=== PATIENT | male | born 1985 | race African-American/Black ===

== ENCOUNTER 2017-06-28 19:00 | Emergency (ER) | payer MEDICAID ==
[~2017-06-28] VITALS: Ht 172.7 cm; Wt 72.0 kg
[2017-06-28 22:00] VITALS: BP 120/75
== END 2017-06-28 22:00 | disposition home or self-care (01) ==
LOC: ER 20:51
DX: K08.89 Other specified disorders of teeth and supporting structures (principal)
CPT/HCPCS: 99283

== ENCOUNTER 2017-08-09 07:56 | Emergency (ER) | payer MEDICAID ==
[~2017-08-09] VITALS: Ht 172.7 cm; Wt 73.0 kg
[2017-08-09 08:07] VITALS: BP 114/57
== END 2017-08-09 12:54 | disposition left against medical advice (07) ==
LOC: ER 08:14
DX: N23 Unspecified renal colic (principal); Z53.21 Procedure and treatment not carried out due to patient leaving prior to being seen by health care provider

== ENCOUNTER 2017-08-24 07:53 | Emergency (ER) | payer MEDICAID ==
[~2017-08-24] VITALS: Ht 170.2 cm; Wt 80.0 kg
[2017-08-24] MEDS ORDERED: ASPIRIN 81MG TABLET PO STA (08:25)
[2017-08-24 08:51] LABS: BASOPHILS % 0.5 % (0.0-2.0); EOSINOPHILS % 2.6 % (0.0-5.0); HEMATOCRIT. 43.2 % (42.0-52.0); HEMOGLOBIN. 15.1 g/dL (14.0-18.0); LYMPHOCYTES % 27.5 % (20.0-50.0); MEAN CORPUSCULAR HEMOGLOBIN 29.2 pg (28.0-32.0); MEAN CORPUSCULAR VOLUME 83.5 fL (80.0-94.0); MEAN PLATELET VOLUME 7.6 fl (7.4-10.4); MONOCYTES % 8.1 % (2.0-8.0); NEUTROPHILS % 61.3 % (40.0-76.0); PLATELET 258 x1000/uL (130-400); RED BLOOD CELL COUNT 5.17 mill/uL (4.7-6.1); RED CELL DISTRIBUTION WIDTH 12.8 % (11.6-14.6)
[2017-08-24 09:02] LABS: CHLORIDE 105 mEq/L (98-107)
[2017-08-24 09:03] LABS: INR 1.1; PARTIAL THROMBOPLASTIN TIME 26.2 sec (23.4-31.0); PROTHROMBIN TIME 11.3 sec (9.4-11.6)
[2017-08-24 13:57] VITALS: BP 112/74
== END 2017-08-24 13:57 | disposition home or self-care (01) ==
LOC: ER 08:08
DX: R07.89 Other chest pain (principal); Z87.891 Personal history of nicotine dependence
CPT/HCPCS: 36415; 71045; 80048; 84484; 85025; 85610; 85730; 93005; 99285

== ENCOUNTER 2017-09-18 06:50 | Emergency (ER) | payer MEDICAID ==
[~2017-09-18] VITALS: Ht 167.6 cm; Wt 75.0 kg
[2017-09-18 07:09] VITALS: BP 116/72
== END 2017-09-18 07:56 | disposition home or self-care (01) ==
LOC: ER 07:34
DX: B35.3 Tinea pedis (principal)
CPT/HCPCS: 99283